=== PATIENT | female | born 1930 | race Two or more races ===

== ENCOUNTER 2017-09-13 02:21 | Inpatient (IN) | payer BC ==
[~2017-09-13] VITALS: Ht 152.4 cm; Wt 72.1 kg
[2017-09-13] MEDS ORDERED: Albuterol ud Inhalation HHN ONE (02:30)
[2017-09-13] MEDS ORDERED: Nitroglycerin Subl 0.4mg tab SL ONE (02:30)
[2017-09-13] MEDS ORDERED: Ipratropium 0.02% Inh Soln 2.5ml UD HHN ONE (02:30)
--- NOTE | 2017-09-13 03:22 | Emergency Room Report ---
History of Present Illness General Chief Complaint: Dyspnea/Respdistress Source: Patient Present Illness HPI Is an 87-year-old female with a she had blood pressure and CAD. She has a pacemaker placed. She presents with chief complaint shows of breath. Been onset for the last couple days it worse at 7 PM tonight. Worse with exertion. Worse with lying flat. No nausea no vomiting. She had to call 911. EMS said she was wheezing and short breath. Blood pressure was very high. They gave her a breathing treatment and put on oxygen. No nausea no vomiting. Never had this problem before. Allergies: Coded Allergies: No Known Allergies (Unverified , 09/13/17) Patient History Past Medical History: see triage record, old chart reviewed, HTN, CAD Past Surgical History: pacemaker Pertinent Family History: none Social History: Denies: smoking Now: No Immunizations: other Reviewed Nursing Documentation: PMH: Agreed, PSxH: Agreed Nursing Documentation-PMH Hx Hypertension: Yes Hx Pacemaker: Yes Review of Systems Eye: Denies: eye pain, blurred vision ENT: Denies: ear pain, nose congestion, throat swelling Respiratory: Reports: shortness of breath, Denies: cough Cardiovascular: Denies: chest pain, palpitations Gastrointestinal: Denies: abdominal pain, diarrhea, nausea, vomiting Musculoskeletal: Denies: back pain, joint pain Skin: Denies: rash Neurological: Denies: headache, numbness Endocrine: Denies: increased thirst, increased urine Hematologic/Lymphatic: Denies: easy bruising All Other Systems: negative except mentioned in HPI Physical Exam Vital Signs Date Time Temp Pulse Resp B/P (MAP) Pulse Ox O2 Delivery O2 Flow Rate FiO2 09/13/17 02:25 97.8 107 28 184/89 97 Non-Rebreather 15.0 97.9 09/13/17 02:47 100 vitals with high blood pressure and hypoxia Sp02 EP Interpretation: abnormal General Appearance: moderate distress Head: normocephalic, atraumatic Eyes: bilateral eye PERRL, bilateral eye EOMI ENT: hearing grossly normal, normal pharynx Neck: full range of motion, supple, no meningismus Respiratory: chest non-tender, respiratory distress, decreased breath sounds, accessory muscle use, rales Cardiovascular #1: regular rate, rhythm, no murmur Gastrointestinal: normal bowel sounds, non tender, no mass, no organomegaly, no bruit, non-distended Musculoskeletal: back normal, normal range of motion, swelling - Trace edema Neurologic: alert, oriented x3 Psychiatric: mood/affect normal Skin: warm/dry Procedures Critical Care Time Critical Care Time Critical care is mandated in this patient who presented with pulmonary edema. Patient require my urgent intervention to attenuate the risks of respiratory collapse which may lead to cardiovascular collapse and . Critical care time is 35 minutes excluding any reportable procedure. Critical care time included evaluation, multiple reevaluation, looking at old charts, interpreting laboratory and diagnostic data, discussing case with patient and family and consultants, and charting. Medical Decision Making Diagnostic Impression: Primary Impression: Pulmonary edema cardiac cause Additional Impression: Hypertensive CHF (congestive heart failure) Qualified Codes: I11.0 - Hypertensive heart disease with heart failure ER Course Patient present with respiratory distress secondary to pulmonary edema and CHF. She diuresed well with Lasix and nitroglycerin and on BiPAP. Blood pressure much improved. Much more comfortable. We'll admit for further workup. No evidence of PE, dissection, pneumonia to name a few. EKG Diagnostic Results Rate: normal Rhythm: NSR ST Segments: no acute changes - paced. ASA given to the pt in ED: Yes Rhythm Strip Diag. Results Rhythm Strip Time: 03:25 EP Interpretation: yes Rate: 78 Rhythm: NSR, no PVC's, no ectopy Chest X-Ray Diagnostic Results Chest X-Ray Diagnostic Results : Chest X-Ray Ordered: Yes # of Views/Limited/Complete: 1 View Indication: Shortness of Breath EP Interpretation: Yes Interpretation: no consolidation, no pneumothorax, other - CM, pacer, chf Impression: Other - chf Electronically Signed by: Glenn Verma MD Last Vital Signs Date Time Temp Pulse Resp B/P (MAP) Pulse Ox O2 Delivery O2 Flow Rate FiO2 09/13/17 03:18 15.0 100 09/13/17 03:11 102 38 Bi-pap 09/13/17 02:56 99 09/13/17 02:52 173/94 09/13/17 02:25 97.8 97.9 Status: improved Disposition: ADMITTED INPATIENT Condition: Serious GLENN VERMA M.D. Sep 13, 2017 03:22
[2017-09-13 03:28] LABS: HEMATOCRIT 40.2 % (37.0-47.0); HEMOGLOBIN 13.2 G/DL (12.0-16.0); LYMPHOCYTES % (AUTO) 23.3 % (20.0-45.0); MEAN CORPUSCULAR VOLUME 87 FL (80-99); MONOCYTES % (AUTO) 5.2 % (1.0-10.0); NEUTROPHILS % (AUTO) 68.5 % (45.0-75.0); PLATELET COUNT 198 K/UL (150-450); RED BLOOD COUNT 4.61 M/UL (4.20-5.40); RED CELL DISTRIBUTION WIDTH 11.8 % (11.6-14.8); WHITE BLOOD COUNT 9.2 K/UL (4.8-10.8)
[2017-09-13 03:39] LABS: ANION GAP 10 mmol/L (5-15); BLOOD UREA NITROGEN 15 mg/dL (7-18); CALCIUM 8.8 MG/DL (8.5-10.1); CARBON DIOXIDE 24 MMOL/L (21-32); CHLORIDE 101 MMOL/L (98-107); CREATININE 0.8 MG/DL (0.55-1.30); POTASSIUM 3.4 MMOL/L (3.5-5.1); SODIUM 135 MMOL/L (136-145)
[2017-09-13 03:53] LABS: ALANINE AMINOTRANSFERASE 27 U/L (12-78); ALBUMIN 3.8 G/DL (3.4-5.0); ALKALINE PHOSPHATASE 96 U/L (46-116); ASPARTATE AMINO TRANSFERASE 18 U/L (15-37); BILIRUBIN,TOTAL 0.5 MG/DL (0.2-1.0); CKMB 1.7 NG/ML (0.0-3.6); CREATINE KINASE 57 U/L (26-308)
[2017-09-13] MEDS ORDERED: Enoxaparin 60mg Inj SUBQ ONE (04:00)
[2017-09-13] MEDS ORDERED: Aspirin Baby 81mg ORAL ONE (04:00)
[2017-09-13 04:38] VITALS: BP 97/52
[2017-09-13 04:55] VITALS: BP 142/82
[2017-09-13 08:00] VITALS: BP 150/78
[2017-09-13] MEDS: Lisinopril 20mg tab ORAL SCH ×2 (09:08→20:20)
[2017-09-13] MEDS: Heparin 5000 units/ml inj SUBQ SCH ×2 (09:11→20:26)
[2017-09-13] MEDS ORDERED: HydrALAZINE 25mg tab ORAL PRN (09:45)
[2017-09-13] MEDS: Metoprolol 25mg tab ORAL SCH ×2 (10:05→20:19)
--- NOTE | 2017-09-13 10:37 | Cardiology Report ---
APPROVED REPORT EKG Measurement Heart [id number] P39 [id number] AV sequential pacing Abnormal ECG
--- NOTE | 2017-09-13 10:43 | Diagnostic Imaging Report ---
Indication: Dyspnea Comparison: None A single view chest radiograph was obtained. Findings: Lung volumes are low. Interstitial prominence and vascular prominence demonstrated. Borderline cardiomegaly present. Pacemaker noted. Atelectasis is likely present at the lung bases. Bones are osteopenic. IMPRESSION: Probable mild interstitial edema.
[2017-09-13 12:31] VITALS: BP 145/71
[2017-09-13] MEDS: Nitroglycerin 2% oint pkt TOPIC SCH ×2 (12:31→17:28)
[2017-09-13 16:00] VITALS: BP 132/75
--- NOTE | 2017-09-13 16:59 | History & Physical ---
History and Physical History & Physicial dict h&p Resp failure pulm edema pulm HTN CHF, acute on chronic systolic and diastolic DM see orders GERARDO LR Sep 13, 2017 16:58
--- NOTE | 2017-09-13 17:17 | Consultation ---
DATE OF CONSULTATION: 09/13/2017 CARDIOLOGY CONSULTATION CONSULTING PHYSICIAN: Rayo Page M.D. REFERRING PHYSICIAN: Gama Fischer M.D. REASON FOR CONSULTATION: Congestive heart failure. HISTORY OF PRESENT ILLNESS: This is an 87-year-old female. She has a prior history of congestive heart failure and hypertension. She notes that several weeks ago, she saw her doctor as an outpatient for leg swelling and was started on a diuretic orally. She improved a bit, but over the past few days has been increasingly weak, fatigued, and short of breath. Last evening, her symptoms progressed significantly and she could not sit down, lie flat, or catch her breath at all prompting visit to the emergency room. The patient has been compliant with medications. She denies any additional salt to her diet. She has not had any recent upper respiratory or other infections. PAST MEDICAL HISTORY: Includes permanent pacemaker implanted two years ago, hypertension, hyperlipidemia, and type 2 diabetes mellitus. MEDICATIONS: Prior to admission, reviewed and reconciled. ALLERGIES: Include phenobarbital. SOCIAL HISTORY: Negative for smoking, alcohol, or substance abuse. REVIEW OF SYSTEMS: A 10-point review of systems performed. All systems negative other than noted above. The patient does not recall when her pacemaker was last interrogated. PHYSICAL EXAMINATION: VITAL SIGNS: Blood pressure in the emergency room 184/89, heart rate 107, and respiratory rate 28. She was afebrile. Presently, blood pressure is 150/80, pulse is 90, and respiratory rate 20. HEENT: Conjunctivae pink. Oropharynx clear. NECK: Supple. Jugular venous pressure to the level of the jaw. LUNGS: With bilateral rales. CARDIAC: Regular rhythm and rate. Normal S1, S2. A 1/6 systolic murmur at apex. ABDOMEN: Soft. EXTREMITIES: A 1+ dependent edema. LABORATORY DATA: White count 9 and hemoglobin 13. Sodium 135, potassium 3.4, bicarbonate 24, BUN 16, and creatinine 0.8. Glucose 343. Natriuretic peptide 2400 and troponin is 0.059. IMPRESSION: 1. Acute on chronic systolic and diastolic congestive heart failure. 2. Permanent pacemaker. 3. Hypertensive heart disease with labile blood pressure. 4. Elevated glucose, possible diabetes mellitus. 5. Acute myocardial ischemia and possible [id number] myocardial infarction. PLAN: 1. Diuresis. 2. Maximize antihypertensive and anti-failure regimen in a stepwise fashion. 3. Observe cardiorenal parameters closely. 4. DVT prophylaxis. 5. Serial troponin levels. 6. Further assessment of coronary flow reserve will be considered once the patient is euvolemic. Rayo Page M.D. DR: TRAN JOB#: [id number] CC:
[2017-09-13] MEDS: metFORMIN 500mg tab ORAL SCH (17:30)
[2017-09-13 20:00] VITALS: BP 155/87
[2017-09-13] MEDS: Atorvastatin 20mg tab ORAL SCH (20:20)
[2017-09-13] MEDS: NovoLOG Insulin Flexpen SUBQ SCH (20:27)
--- NOTE | 2017-09-13 22:46 | History and Physical Report ---
DATE OF ADMISSION: 09/13/2017 CHIEF COMPLAINT: Short of breath. HISTORY OF PRESENT ILLNESS: This 87-year-old woman came to the emergency department because of shortness of breath for one day. She called the paramedics because of these symptoms. She had some wheezing. She has no cough or sputum production. She has no high fever and no chest pain. She was evaluated and found to have pulmonary edema and respiratory distress and was placed on BiPAP and admitted. She was given Lasix and has improved and BiPAP was discontinued at this time. PAST MEDICAL HISTORY: Includes hypertension, coronary disease, diabetes, and pacemaker. She has no history of cancer. MEDICATIONS: To be determined. She is on antihypertensive medication. ALLERGIES: Phenobarbital. REVIEW OF SYSTEMS: She is able to ambulate. She lives independently. She feeds herself. She has no chest pain or palpitations. She has shortness of breath. There is no nausea, vomiting, or diarrhea. She has had ankle edema, but this has improved recently. PHYSICAL EXAMINATION: VITAL SIGNS: Showed tachycardia with some tachypnea and marked hypertension when she arrived. Her blood pressure was 184/89. There was no fever. Presently, her heart rate is down to 68, blood pressure 145/71, saturation 100, and she is on 4 liters of nasal cannula. Her temperature is 99.2 degrees. GENERAL: The patient is overweight. HEENT: The head is normocephalic. NECK: No jugular venous distention. CHEST: Has rales in the left base. CARDIAC: Rhythm is regular. S1 and S2 are normal. There is no murmur or gallop. ABDOMEN: Soft and nontender. Liver and spleen not enlarged. EXTREMITIES: No clubbing, cyanosis, or edema. LABORATORY AND DIAGNOSTIC DATA: Laboratory studies, natriuretic peptide is elevated to 2400. Troponin is mildly elevated at 1.2. Sodium is 135, potassium 3.4, and blood sugar 343. Hemogram is unremarkable. Coagulation parameters are normal. Chest x-ray shows pulmonary edema, cardiomegaly, and pacemaker. IMPRESSION: 1. Acute respiratory failure. 2. Pulmonary edema. 3. Congestive heart failure with acute on chronic systolic and diastolic heart failure. 4. Pulmonary hypertension seen on echocardiogram. 5. Diabetes. 6. Hypertension. PLAN: The patient has been treated with Lasix and improved. She is off BiPAP. We will continue diuresis and antihypertensive medication. Cardiology is seeing the patient. We will follow up troponin to rule out acute HI. Diabetic medications will be given. Gama Fischer M.D. DR: Xochitl JOB#: [id number] CC: Gama Fischer M.D.; Fax#: [phone]
[2017-09-13] MEDS ORDERED: Morphine Sulfate 2mg/ml Inj IM PRN (23:15)
[2017-09-14] VITALS: BP 143/77
[2017-09-14 02:50] LABS: ALANINE AMINOTRANSFERASE 28 U/L (12-78); ALBUMIN 3.7 G/DL (3.4-5.0); ALBUMIN/GLOBULIN RATIO 0.9 (1.0-2.7); ALKALINE PHOSPHATASE 72 U/L (46-116); ANION GAP 7 mmol/L (5-15); ASPARTATE AMINO TRANSFERASE 19 U/L (15-37); BILIRUBIN,TOTAL 0.6 MG/DL (0.2-1.0); BLOOD UREA NITROGEN 19 mg/dL (7-18); CALCIUM 9.3 MG/DL (8.5-10.1); CARBON DIOXIDE 31 MMOL/L (21-32); CHLORIDE 100 MMOL/L (98-107); CHOLESTEROL 110 MG/DL (< 200); CREATININE 0.8 MG/DL (0.55-1.30); HDL CHOLESTEROL 36 MG/DL (40-60); POTASSIUM 3.7 MMOL/L (3.5-5.1); SODIUM 138 MMOL/L (136-145); TRIGLYCERIDES 136 MG/DL (30-150)
[2017-09-14 04:00] VITALS: BP 158/78
[2017-09-14 05:26] LABS: BILIRUBIN, URINE NEGATIVE (NEGATIVE); COLOR,URINE PALE YELLOW; GLUCOSE, URINE (UA) NEGATIVE (NEGATIVE); KETONES,URINE NEGATIVE (NEGATIVE); LEUKOCYTE ESTERASE ,URINE 3+ (NEGATIVE); NITRITE,URINE NEGATIVE (NEGATIVE); PH,URINE 5 (4.5-8.0); PROTEIN,URINE 2+ (NEGATIVE); UROBILINOGEN,URINE NORMAL MG/DL (0.0-1.0)
[2017-09-14] MEDS: Nitroglycerin 2% oint pkt TOPIC SCH ×3 (05:26→17:37)
[2017-09-14] MEDS: NovoLOG Insulin Flexpen SUBQ SCH ×4 (05:26→20:34)
[2017-09-14 05:37] LABS: APPEARANCE,URINE SLIGHTLY CLOUDY
[2017-09-14] MEDS ORDERED: Morphine Sulfate 4mg/ml Inj IVP PRN (05:45)
[2017-09-14] MEDS ORDERED: Morphine Sulfate 2mg/ml Inj IVP PRN (06:00)
[2017-09-14 08:00] VITALS: BP 136/70
[2017-09-14] MEDS ORDERED: LISINOPRIL1 GM MC (08:13)
--- NOTE | 2017-09-14 08:19 | Pulmonology Progress Note ---
Assessment/Plan Assessment/Plan 1. Acute respiratory failure. 2. Pulmonary edema. 3. Congestive heart failure with acute on chronic systolic and diastolic heart failure. 4. Pulmonary hypertension seen on echocardiogram. 5. Diabetes. 6. Hypertension. PLAN: The patient has been treated with Lasix and improved. She is off BiPAP. I will continue diuresis and provide antihypertensive medication. Cardiology is seeing the patient. saturating 96% on 2L/min o2 Diabetes care Subjective Interval Events: Looking better; no overnight complaints Constitutional: Reports: no symptoms HEENT: Repors: no symptoms Respiratory: Reports: shortness of breath Cardiovascular: Reports: no symptoms Gastrointestinal/Abdominal: Reports: no symptoms Allergies: Coded Allergies: PHENOBARBITAL (Verified Allergy, Unknown, 09/13/17) Objective Last 24 Hour Vital Signs Date Time Temp Pulse Resp B/P (MAP) Pulse Ox O2 Delivery O2 Flow Rate FiO2 09/14/17 08:11 Nasal Cannula 2.0 28 09/14/17 08:10 88 20 Nasal Cannula 2.0 28 09/14/17 08:10 98 Nasal Cannula 2.0 28 09/14/17 05:26 158/78 09/14/17 04:00 3.0 09/14/17 04:00 98.7 71 20 158/78 98 Nasal Cannula 3.0 09/14/17 04:00 77 09/14/17 00:00 96.3 72 20 143/77 95 Nasal Cannula 4.0 09/14/17 00:00 71 09/13/17 20:20 155/87 09/13/17 20:19 83 155/87 09/13/17 20:18 Nasal Cannula 2.0 28 09/13/17 20:18 85 20 Nasal Cannula 2.0 28 09/13/17 20:18 98 Nasal Cannula 2.0 28 09/13/17 20:00 84 09/13/17 20:00 98.5 83 20 155/87 100 Nasal Cannula 4.0 09/13/17 20:00 2.0 09/13/17 17:28 132/75 09/13/17 16:00 97.8 64 19 132/75 100 Nasal Cannula 4.0 09/13/17 15:58 68 09/13/17 15:58 4.0 09/13/17 12:31 99.2 68 18 145/71 98 Nasal Cannula 4.0 09/13/17 12:31 145/71 09/13/17 12:00 60 09/13/17 12:00 4.0 09/13/17 10:08 83 18 98 09/13/17 10:05 60 150/78 09/13/17 09:08 150/78 Intake and Output 09/13/17 09/14/17 19:00 07:00 Intake Total 300 ml 200 ml Output Total 900 ml 1550 ml Balance -600 ml -1350 ml Intake Oral 300 ml 200 ml Output Urine Total 900 ml 1550 ml General Appearance: no acute distress HEENT: normocephalic Respiratory/Chest: chest wall non-tender, decreased breath sounds Cardiovascular: normal peripheral pulses, normal rate Abdomen: normal bowel sounds, soft, non tender Laboratory Tests 09/13/17 10:20: Troponin I 1.271H 09/13/17 17:50: Troponin I 1.361H 09/14/17 02:15: Troponin I 1.146H, Sodium Level 138, Potassium Level 3.7, Chloride Level 100, Carbon Dioxide Level 31, Anion Gap 7, Blood Urea Nitrogen 19H, Creatinine 0.8, Estimat Glomerular Filtration Rate , Glucose Level 220#H, Hemoglobin A1c 9.2H, Calcium Level 9.3, Total Bilirubin 0.6, Aspartate Amino Transf (AST/SGOT) 19, Alanine Aminotransferase (ALT/SGPT) 28, Alkaline Phosphatase 72, Pro-B-Type Natriuretic Peptide 4039H, Total Protein 7.6, Albumin 3.7, Globulin 3.9, Albumin /Globulin Ratio 0.9L, Triglycerides Level 136, Cholesterol Level 110, LDL Cholesterol 59, HDL Cholesterol 36L, Cholesterol/HDL Ratio 3.1L 09/14/17 03:00: Urine Color Pale yellow, Urine Appearance Slightly cloudy, Urine pH 5, Urine Specific [place] 1.020, Urine Protein 2+H, Urine Glucose (UA) Negative, Urine Ketones Negative, Urine Occult Blood 5+H, Urine Nitrite Negative, Urine Bilirubin Negative, Urine Urobilinogen Normal, Urine Leukocyte Esterase 3+H, Urine RBC 40-60H, Urine WBC 30-40H, Urine Squamous Epithelial Cells Few, Urine Bacteria ManyH Current Medications Medications (Trade) Dose Ordered Sig/Sin Route PRN Reason Start Time Stop Time Status Last Admin Dose Admin Atorvastatin Calcium (Lipitor) 40 mg BEDTIME ORAL 09/13/17 21:00 10/13/17 20:59 09/13/17 20:20 Clopidogrel Bisulfate (Plavix) 75 mg DAILY ORAL 09/14/17 09:00 10/14/17 08:59 Dextrose (Dextrose 50%) STAT PRN IV Hypoglycemia 09/13/17 17:15 10/13/17 17:14 Furosemide (Lasix) 40 mg EVERY 12 HOURS IV 09/13/17 21:00 10/13/17 13:59 09/13/17 20:19 Heparin Sodium (Porcine) (Heparin 5000 units/ml) 5,000 units EVERY 12 HOURS SUBQ 09/13/17 09:00 10/13/17 08:59 09/13/17 20:26 Hydralazine HCl (Apresoline) 25 mg Q6H PRN ORAL SBP above 150 09/13/17 09:45 10/13/17 09:44 Insulin Aspart (NovoLOG) BEFORE MEALS AND HS SUBQ 09/13/17 21:00 10/13/17 20:59 09/14/17 05:26 Lisinopril (Prinivil) 20 mg Q12HR ORAL 09/13/17 09:00 10/13/17 08:59 09/13/17 20:20 Metformin HCl (Glucophage) 500 mg BID ORAL 09/13/17 18:00 10/13/17 17:59 09/13/17 17:30 Metoprolol Tartrate (Lopressor) 25 mg Q12HR ORAL 09/13/17 10:00 10/13/17 09:59 09/13/17 20:19 Morphine Sulfate (Morphine Sulfate) 2 mg Q3HR PRN IVP For Pain 09/14/17 06:00 09/21/17 05:59 Nitroglycerin (Nitro-Bid) 1 inch TID@0600,1200,1800 TOPIC 09/13/17 12:00 10/13/17 11:59 09/14/17 05:26 Ondansetron HCl (Zofran) 4 mg EVERY 4 HOURS PRN IVP Nausea & Vomiting 09/13/17 23:15 10/13/17 23:14 09/13/17 23:32 Reuben Patiño MD Sep 14, 2017 08:19
[2017-09-14] MEDS ORDERED: GLIPIZIDE-METF1 EACH PO (08:23)
[2017-09-14] MEDS ORDERED: METFORMIN HCL500 M1 ORAL (08:23)
[2017-09-14] MEDS ORDERED: CARVEDILOL6.25 MG ORAL (08:23)
[2017-09-14] MEDS ORDERED: PANTOPRAZOLE SO40 MG ORAL (08:23)
[2017-09-14] MEDS ORDERED: ASPIR 8181 MG ORAL (08:23)
[2017-09-14] MEDS: Heparin 5000 units/ml inj SUBQ SCH ×2 (09:26→20:33)
[2017-09-14] MEDS: metFORMIN 500mg tab ORAL SCH ×2 (09:27→17:36)
[2017-09-14] MEDS: Metoprolol 25mg tab ORAL SCH ×2 (09:28→20:32)
[2017-09-14] MEDS: Lisinopril 20mg tab ORAL SCH ×2 (09:28→20:31)
[2017-09-14 12:00] VITALS: BP 120/62
--- NOTE | 2017-09-14 14:10 | Wound Care Consultation ---
Wound Assessment Wound Assessment : Wound Number: 1 Wound Present on Admission: Yes New Wound: No Status Change of Wound: No Wound Location Body Site: perianal Wound Type: erosion Dagmar Test: Does not Dagmar Wound Thickness: Full Thickness Percent of Wound [place]/Red: 100 Wound Drainage Description: Serosanguineous Wound Drainage Amount: Scant Wound Drainage Odor: None/Absent Tissue Surrounding Wound: Erythemic Wound General Appearance: Reddened Wound Comment #1 Perianal chemical burn with full thickness erosion #2 Perineal chemical burn Recommendation -Local wound care per protocol -Keep clean and dry -Offload both heels -Heel protector on both heels -Optimize nutrition -Low air loss mattress -Turn and reposition -Assess and f/u accordingly for any changes ANNE EDUARDO RN Sep 14, 2017 14:10
[2017-09-14 16:00] VITALS: BP 127/65
[2017-09-14 20:00] VITALS: BP 149/56
[2017-09-14] MEDS: Atorvastatin 20mg tab ORAL SCH (20:32)
[2017-09-15] VITALS: BP 117/60
[2017-09-15 04:00] VITALS: BP 141/70
[2017-09-15 04:00] LABS: BASOPHILS % (AUTO) 0.8 % (0.0-2.0); EOSINOPHILS % (AUTO) 1.9 % (0.0-3.0); HEMOGLOBIN 12.3 G/DL (12.0-16.0); LYMPHOCYTES % (AUTO) 18.9 % (20.0-45.0); MEAN CORPUSCULAR VOLUME 87 FL (80-99); NEUTROPHILS % (AUTO) 71.4 % (45.0-75.0); PLATELET COUNT 177 K/UL (150-450); RED BLOOD COUNT 4.13 M/UL (4.20-5.40); RED CELL DISTRIBUTION WIDTH 11.9 % (11.6-14.8); WHITE BLOOD COUNT 9.5 K/UL (4.8-10.8)
[2017-09-15 04:21] LABS: ANION GAP 8 mmol/L (5-15); BLOOD UREA NITROGEN 24 mg/dL (7-18); CALCIUM 9.1 MG/DL (8.5-10.1); CARBON DIOXIDE 32 MMOL/L (21-32); CHLORIDE 98 MMOL/L (98-107); CREATININE 0.8 MG/DL (0.55-1.30); POTASSIUM 3.5 MMOL/L (3.5-5.1); SODIUM 138 MMOL/L (136-145)
[2017-09-15] MEDS: Nitroglycerin 2% oint pkt TOPIC SCH ×3 (05:46→17:35)
[2017-09-15] MEDS: NovoLOG Insulin Flexpen SUBQ SCH ×4 (05:46→20:52)
[2017-09-15 08:00] VITALS: BP 146/82
--- NOTE | 2017-09-15 09:42 | Pulmonology Progress Note ---
Assessment/Plan Assessment/Plan Assessment/Plan 1. Acute respiratory failure. 2. Pulmonary edema. 3. Congestive heart failure with acute on chronic systolic and diastolic heart failure. 4. Pulmonary hypertension seen on echocardiogram. 5. Diabetes. 6. Hypertension. 7 UTI PLAN: Diuresis She is off BiPAP whs and prn distress antihypertensive medication. Cardiology is seeing the patient. saturating 96% on 2L/min o2 Diabetes care FU Urine culture start abx Subjective Constitutional: Reports: no symptoms HEENT: Repors: no symptoms Respiratory: Reports: productive cough Cardiovascular: Reports: no symptoms Gastrointestinal/Abdominal: Reports: nausea Genitourinary: Reports: no symptoms Neurologic: Reports: no symptoms Psychiatric: Reports: no symptoms Allergies: Coded Allergies: PHENOBARBITAL (Verified Allergy, Unknown, 09/13/17) Subjective better this am bipap at night oob to chair no cp nv or bleeding tolerating po positive bm and uop Objective Last 24 Hour Vital Signs Date Time Temp Pulse Resp B/P (MAP) Pulse Ox O2 Delivery O2 Flow Rate FiO2 09/15/17 08:00 97.7 83 18 146/82 97 Nasal Cannula 3.0 09/15/17 07:44 Nasal Cannula 3.0 32 09/15/17 07:44 98 Nasal Cannula 3.0 32 09/15/17 07:44 75 18 Nasal Cannula 3.0 32 09/15/17 05:46 141/70 09/15/17 04:00 73 09/15/17 04:00 98.2 70 24 141/70 96 Nasal Cannula 3.0 09/15/17 00:00 99.1 70 24 117/60 98 Nasal Cannula 3.0 09/15/17 00:00 68 09/14/17 20:32 82 149/56 18 20:31 149/56 09/14/17 20:00 82 09/14/17 20:00 98.2 82 16 149/56 96 Nasal Cannula 3.0 09/14/17 19:57 Nasal Cannula 3.0 32 09/14/17 19:56 96 Nasal Cannula 3.0 32 09/14/17 19:53 73 18 Nasal Cannula 3.0 32 09/14/17 17:37 120/62 09/14/17 16:19 3.0 09/14/17 16:00 98.9 72 18 127/65 96 Nasal Cannula 3.0 09/14/17 16:00 71 09/14/17 12:49 120/62 09/14/17 12:00 60 09/14/17 12:00 98.2 62 16 120/62 97 Nasal Cannula 3.0 Intake and Output 09/14/17 09/15/17 19:00 07:00 Intake Total 680 ml 100 ml Output Total 750 ml 1400 ml Balance -70 ml -1300 ml Intake Oral 680 ml Other 100 ml Output Urine Total 750 ml 1400 ml General Appearance: WD/WN HEENT: PERRL Respiratory/Chest: crackles/rales, rhonchi Cardiovascular: normal rate, regular rhythm Abdomen: soft, non tender, non distended Extremities: no cyanosis, no clubbing Neurologic/Psychiatric: abnormal gait, oriented x 3 Lymphatic: no neck adenopathy Laboratory Tests 09/15/17 03:15: White Blood Count 9.5, Red Blood Count 4.13L, Hemoglobin 12.3, Hematocrit 36.0L , Mean Corpuscular Volume 87, Mean Corpuscular Hemoglobin 29.9, Mean Corpuscular Hemoglobin Concent 34.3, Red Cell Distribution Width 11.9, Platelet Count 177, Mean Platelet Volume 9.1, Neutrophils (%) (Auto) 71.4, Lymphocytes (% ) (Auto) 18.9L, Monocytes (%) (Auto) 7.0, Eosinophils (%) (Auto) 1.9, Basophils (%) (Auto) 0.8, Sodium Level 138, Potassium Level 3.5, Chloride Level 98, Carbon Dioxide Level 32, Anion Gap 8, Blood Urea Nitrogen 24H, Creatinine 0.8, Estimat Glomerular Filtration Rate , Glucose Level 155H, Calcium Level 9.1, Pro- B-Type Natriuretic Peptide 1777H Current Medications Medications (Trade) Dose Ordered Sig/Sin Route PRN Reason Start Time Stop Time Status Last Admin Dose Admin Atorvastatin Calcium (Lipitor) 40 mg BEDTIME ORAL 09/13/17 21:00 10/13/17 20:59 09/14/17 20:32 Clopidogrel Bisulfate (Plavix) 75 mg DAILY ORAL 09/14/17 09:00 10/14/17 08:59 09/14/17 09:28 Dextrose (Dextrose 50%) STAT PRN IV Hypoglycemia 09/13/17 17:15 10/13/17 17:14 Furosemide (Lasix) 40 mg EVERY 12 HOURS IV 09/13/17 21:00 10/13/17 13:59 09/14/17 20:32 Heparin Sodium (Porcine) (Heparin 5000 units/ml) 5,000 units EVERY 12 HOURS SUBQ 09/13/17 09:00 10/13/17 08:59 09/14/17 20:33 Hydralazine HCl (Apresoline) 25 mg Q6H PRN ORAL SBP above 150 09/13/17 09:45 10/13/17 09:44 Insulin Aspart (NovoLOG) BEFORE MEALS AND HS SUBQ 09/13/17 21:00 10/13/17 20:59 09/15/17 05:46 Lisinopril (Prinivil) 20 mg Q12HR ORAL 09/13/17 09:00 10/13/17 08:59 09/14/17 20:31 Metformin HCl (Glucophage) 500 mg BID ORAL 09/13/17 18:00 10/13/17 17:59 09/14/17 17:36 Metoprolol Tartrate (Lopressor) 25 mg Q12HR ORAL 09/13/17 10:00 10/13/17 09:59 09/14/17 20:32 Nitroglycerin (Nitro-Bid) 1 inch TID@0600,1200,1800 TOPIC 09/13/17 12:00 10/13/17 11:59 09/15/17 05:46 Ondansetron HCl (Zofran) 4 mg EVERY 4 HOURS PRN IVP Nausea & Vomiting 09/13/17 23:15 10/13/17 23:14 09/13/17 23:32 SAMANTHA CAT DO Sep 15, 2017 09:42
[2017-09-15] MEDS: metFORMIN 500mg tab ORAL SCH ×2 (09:49→17:35)
[2017-09-15] MEDS: Lisinopril 20mg tab ORAL SCH ×2 (09:49→20:49)
[2017-09-15] MEDS: Heparin 5000 units/ml inj SUBQ SCH ×2 (09:50→20:44)
[2017-09-15] MEDS: Metoprolol 25mg tab ORAL SCH ×2 (09:50→20:49)
[2017-09-15 12:00] VITALS: BP 117/61
[2017-09-15] MEDS ORDERED: cefTRIAXone 1gm/D5W 55ml IVPB SCH ×2 (12:00)
[2017-09-15] MEDS: cefTRIAXone 1 GM in NS 55 ML IVPB SCH (14:08)
[2017-09-15 16:00] VITALS: BP 108/59
[2017-09-15 20:00] VITALS: BP 141/66
[2017-09-15] MEDS: Atorvastatin 20mg tab ORAL SCH (20:49)
[2017-09-16] VITALS: BP 137/62
[2017-09-16 04:00] VITALS: BP 120/61
[2017-09-16 04:58] LABS: BASOPHILS % (AUTO) 0.5 % (0.0-2.0); EOSINOPHILS % (AUTO) 1.8 % (0.0-3.0); HEMATOCRIT 36.7 % (37.0-47.0); HEMOGLOBIN 12.5 G/DL (12.0-16.0); MEAN CORPUSCULAR VOLUME 86 FL (80-99); MONOCYTES % (AUTO) 6.9 % (1.0-10.0); NEUTROPHILS % (AUTO) 74.8 % (45.0-75.0); PLATELET COUNT 190 K/UL (150-450); RED BLOOD COUNT 4.25 M/UL (4.20-5.40); RED CELL DISTRIBUTION WIDTH 11.5 % (11.6-14.8); WHITE BLOOD COUNT 8.2 K/UL (4.8-10.8)
[2017-09-16 05:27] LABS: ANION GAP 9 mmol/L (5-15); BLOOD UREA NITROGEN 31 mg/dL (7-18); CALCIUM 8.8 MG/DL (8.5-10.1); CARBON DIOXIDE 29 MMOL/L (21-32); CHLORIDE 102 MMOL/L (98-107); CREATININE 0.9 MG/DL (0.55-1.30); POTASSIUM 2.9 MMOL/L (3.5-5.1); SODIUM 140 MMOL/L (136-145)
[2017-09-16] MEDS: Nitroglycerin 2% oint pkt TOPIC SCH ×3 (05:47→18:12)
[2017-09-16] MEDS: NovoLOG Insulin Flexpen SUBQ SCH ×4 (05:48→20:55)
[2017-09-16 08:00] VITALS: BP 141/57
[2017-09-16] MEDS: metFORMIN 500mg tab ORAL SCH ×2 (08:44→18:12)
[2017-09-16] MEDS: Metoprolol 25mg tab ORAL SCH (08:45)
[2017-09-16] MEDS: Lisinopril 20mg tab ORAL SCH ×2 (08:45→20:52)
[2017-09-16] MEDS: Heparin 5000 units/ml inj SUBQ SCH ×2 (08:48→20:54)
--- NOTE | 2017-09-16 09:12 | Cardiology Progress Note ---
Assessment/Plan Assessment/Plan 1. Acute diastolic and systolic CHF, continue lasix, add aldactone, start carvedilol. 2. NSTEMI vs trop leak due to myocarditis, ASA and plavix, high intensity statins. 3. Dual chamber pacemkaer, functioning well, V-paced. Subjective Subjective Sinus rhythm at 81, V-paced. Objective Last 24 Hour Vital Signs Date Time Temp Pulse Resp B/P (MAP) Pulse Ox O2 Delivery O2 Flow Rate FiO2 09/16/17 08:45 81 141/57 09/16/17 08:45 141/57 09/16/17 08:00 98.4 81 20 141/57 97 Nasal Cannula 3.0 09/16/17 07:47 82 09/16/17 06:38 Nasal Cannula 3.0 32 09/16/17 06:37 69 18 Nasal Cannula 3.0 32 09/16/17 06:37 93 Nasal Cannula 3.0 32 09/16/17 05:47 137/62 09/16/17 04:00 97.9 79 20 120/61 96 Nasal Cannula 3.0 09/16/17 04:00 75 09/16/17 00:00 64 09/16/17 00:00 97.3 74 20 137/62 96 Nasal Cannula 3.0 09/15/17 20:49 72 141/66 09/15/17 20:49 141/66 09/15/17 20:05 Nasal Cannula 3.0 32 09/15/17 20:05 95 Nasal Cannula 3.0 32 09/15/17 20:05 72 17 Nasal Cannula 3.0 32 09/15/17 20:00 74 09/15/17 20:00 98.3 70 20 141/66 95 Nasal Cannula 3.0 09/15/17 17:35 108/59 09/15/17 16:00 98.3 76 17 108/59 94 Nasal Cannula 3.0 09/15/17 16:00 72 09/15/17 12:14 117/61 09/15/17 12:00 98.1 64 18 117/61 97 Nasal Cannula 3.0 09/15/17 11:48 63 09/15/17 09:50 83 146/82 09/15/17 09:49 146/82 Intake and Output 09/15/17 09/16/17 19:00 07:00 Intake Total 295 ml 150 ml Output Total 600 ml 1300 ml Balance -305 ml -1150 ml Intake Oral 240 ml 150 ml IV Total 55 ml Output Urine Total 600 ml 1300 ml # Bowel Movements 2 Laboratory Tests Test 09/16/17 04:20 White Blood Count 8.2 K/UL (4.8-10.8) Red Blood Count 4.25 M/UL (4.20-5.40) Hemoglobin 12.5 G/DL (12.0-16.0) Hematocrit 36.7 % (37.0-47.0) L Mean Corpuscular Volume 86 FL (80-99) Mean Corpuscular Hemoglobin 29.4 PG (27.0-31.0) Mean Corpuscular Hemoglobin Concent 34.0 G/DL (32.0-36.0) Red Cell Distribution Width 11.5 % (11.6-14.8) L Platelet Count 190 K/UL (150-450) Mean Platelet Volume 9.0 FL (6.5-10.1) Neutrophils (%) (Auto) 74.8 % (45.0-75.0) Lymphocytes (%) (Auto) 16.0 % (20.0-45.0) L Monocytes (%) (Auto) 6.9 % (1.0-10.0) Eosinophils (%) (Auto) 1.8 % (0.0-3.0) Basophils (%) (Auto) 0.5 % (0.0-2.0) Sodium Level 140 MMOL/L (136-145) Potassium Level 2.9 MMOL/L (3.5-5.1) L Chloride Level 102 MMOL/L (98-107) Carbon Dioxide Level 29 MMOL/L (21-32) Anion Gap 9 mmol/L (5-15) Blood Urea Nitrogen 31 mg/dL (7-18) H Creatinine 0.9 MG/DL (0.55-1.30) Estimat Glomerular Filtration Rate mL/min (>60) Glucose Level 230 MG/DL (74-106) H Calcium Level 8.8 MG/DL (8.5-10.1) Magnesium Level 1.5 MG/DL (1.8-2.4) L Troponin I 0.216 ng/mL (0.000-0.056) Pro-B-Type Natriuretic Peptide 872 pg/mL (0-125) H Microbiology Date/Time Source Procedure Growth Status 09/14/17 03:00 Urine,Clean Catch Urine Culture - Preliminary Gram Negative Faustino Resulted Objective HEENT: Conjunctivae pink. Oropharynx clear. NECK: Supple. Jugular venous pressure to the level of the jaw. LUNGS: With bilateral rales. CARDIAC: Regular rhythm and rate. Normal S1, S2. + S3, A 2/6 systolic murmur at apex. ABDOMEN: Soft. EXTREMITIES: A 1+ dependent edema. FRANCOIS ZAMORA Sep 16, 2017 09:12
--- NOTE | 2017-09-16 10:16 | Progress Note ---
DATE & Time of the patient Encounter: 09/15/2017 7:35 p.m. COMPREHENSIVE CARDIOLOGY PROGRESS NOTE Coverage for Dr. Page Summary: The patient is a very unfortunate 87-year-old female, who presented to the hospital with progressive worsening of shortness of breath for about 2 days, worse with exertion, associated 3-4 pillow orthopnea. The patient has history of coronary artery disease, history of dual-chamber pacemaker implantation. Initial evaluation in the emergency department revealed accelerated hypertension with blood pressure 184/80 mmHg, heart rate of 107. A 12-lead electrocardiogram in the emergency department revealed sinus tachycardia, rate of 102, with ventricular-paced rhythm. At this time, she was admitted under Dr. Fischer and Dr. Page, primary photo editor had consulted on the patient. Initial evaluation revealed [id number] myocardial infarction with troponin level 0.05, now which boubacar to 1.2 and 1.3 and trended down to 1.1. Chest x-ray was significant for pulmonary edema consistent with congestive heart failure. A 2D echocardiography revealed acute systolic and diastolic congestive heart failure with left ventricular ejection fraction estimated at 30% to 35%. There is presence of a moderate mitral regurgitation and mild pulmonary hypertension with RVSP of 40 mmHg. The patient is currently seen in Cardiology followup on behalf of Dr. Rayo Page for whom I am covering. Subjective: The patient appears to be less dyspneic. She complains of loose bowel movements. OBJECTIVE: VITAL SIGNS: Blood pressure 117/61, heart rate of 64, temperature 98.1 degrees Fahrenheit, and O2 saturation 97%. Rhythm strip shows sinus rhythm with ventricular-paced rhythm. HEENT: Atraumatic and normocephalic. Anicteric. Pupils are equal, round, and reactive to light and accommodation. Extraocular muscles intact. NECK: JVP less than 5 cm. No carotid bruits. Carotid upstrokes 2+ bilaterally. CARDIOVASCULAR SYSTEM: Normal S1, S2. Presence of 2/6 holosystolic murmur at the left sternal border and apex. PMI is at fourth intercostal space at the midclavicular line. LUNGS: Diminished breath sounds in both bases with some crackles. ABDOMEN: Soft, nontender, nondistended. No hepatosplenomegaly. Positive bowel sounds. EXTREMITIES: No evidence of edema, clubbing, or cyanosis. LABORATORY FINDINGS: Sodium 138, potassium 3.5, chloride 98, bicarbonate 32, BUN of 24, creatinine 0.8, glucose 155, and calcium is 9.1. ProBNP was 1777. INR was 1.0. WBC 9.5, hemoglobin 12.3, hematocrit 36.0, and platelet count 177,000. ASSESSMENT AND PLAN: 1. Acute systolic and diastolic congestive heart failure. Her BNP, chest x-ray, and 2D echocardiography findings. The patient is currently on furosemide 40 mg twice daily. We will continue to monitor the patient's intake and output and creatinine level. The patient recalls to be also on angiotensin-converting enzyme inhibitor for which she takes lisinopril 20 mg daily. We will add Aldactone 25 mg daily based on guides on recommendation. The patient will also be started on carvedilol. 2. [id number] myocardial infarction versus elevated troponin due to myocarditis. The patient will require to have cardiac catheterization if it was not yet done. I also spoke with the patient and the patient's family and also Dr. Fischer, primary care physician in this regard. In the meantime, we will continue the patient on clopidogrel and aspirin. 3. Dyslipidemia. Continue atorvastatin 40. 4. Diabetes mellitus. 5. History of hypertension. Quinten Jaramillo M.D. DR: Donald JOB#: [id number] CC: JHONY
[2017-09-16 12:00] VITALS: BP 131/69
[2017-09-16] MEDS: cefTRIAXone 1 GM in NS 55 ML IVPB SCH (12:44)
[2017-09-16] MEDS: Spironolactone 25mg tab ORAL SCH (13:30)
[2017-09-16] MEDS: Aspirin Baby 81mg ORAL SCH (14:43)
[2017-09-16 16:00] VITALS: BP 113/59
[2017-09-16 20:00] VITALS: BP 144/74
--- NOTE | 2017-09-16 20:02 | Pulmonology Progress Note ---
Assessment/Plan Assessment/Plan Assessment/Plan 1. Acute respiratory failure. 2. Pulmonary edema. 3. Congestive heart failure with acute on chronic systolic and diastolic heart failure. 4. Pulmonary hypertension seen on echocardiogram. 5. Diabetes. 6. Hypertension. 7 UTI e colie 8. Diarrhea ? Cidiff PLAN: Diuresis lytes replaced today continue supple She is off BiPAP whs and prn distress antihypertensive medication. Cardiology is seeing the patient. saturating 96% on 2L/min o2 Diabetes care abx send stool c diff start flagyl Subjective Constitutional: Reports: no symptoms HEENT: Repors: no symptoms Respiratory: Reports: no symptoms Gastrointestinal/Abdominal: Reports: diarrhea Genitourinary: Reports: no symptoms Neurologic: Reports: no symptoms Psychiatric: Reports: no symptoms Allergies: Coded Allergies: PHENOBARBITAL (Verified Allergy, Unknown, 09/13/17) Subjective better this am bipap at night oob to chair no cp nv or bleeding tolerating po copious diarrhea no fever Objective Last 24 Hour Vital Signs Date Time Temp Pulse Resp B/P (MAP) Pulse Ox O2 Delivery O2 Flow Rate FiO2 09/16/17 19:16 Nasal Cannula 3.0 32 09/16/17 19:16 97 Nasal Cannula 3.0 32 09/16/17 19:16 75 20 Nasal Cannula 3.0 32 09/16/17 18:12 113/59 09/16/17 16:00 97.6 72 20 113/59 97 Nasal Cannula 3.0 09/16/17 16:00 72 09/16/17 12:21 131/69 09/16/17 12:00 98.9 65 20 131/69 97 Nasal Cannula 3.0 09/16/17 11:54 66 09/16/17 08:45 81 141/57 18 08:45 141/57 09/16/17 08:00 98.4 81 20 141/57 97 Nasal Cannula 3.0 09/16/17 07:47 82 09/16/17 06:38 Nasal Cannula 3.0 32 09/16/17 06:37 69 18 Nasal Cannula 3.0 32 09/16/17 06:37 93 Nasal Cannula 3.0 32 09/16/17 05:47 137/62 09/16/17 04:00 97.9 79 20 120/61 96 Nasal Cannula 3.0 09/16/17 04:00 75 09/16/17 00:00 64 09/16/17 00:00 97.3 74 20 137/62 96 Nasal Cannula 3.0 09/15/17 20:49 72 141/66 09/15/17 20:49 141/66 09/15/17 20:05 Nasal Cannula 3.0 32 09/15/17 20:05 95 Nasal Cannula 3.0 32 09/15/17 20:05 72 17 Nasal Cannula 3.0 32 09/15/17 20:00 74 09/15/17 20:00 98.3 70 20 141/66 95 Nasal Cannula 3.0 Intake and Output 09/15/17 09/16/17 19:00 07:00 Intake Total 295 ml 150 ml Output Total 600 ml 1300 ml Balance -305 ml -1150 ml Intake Oral 240 ml 150 ml IV Total 55 ml Output Urine Total 600 ml 1300 ml # Bowel Movements 2 General Appearance: WD/WN HEENT: atraumatic, anicteric Respiratory/Chest: crackles/rales Cardiovascular: normal rate, regular rhythm, murmur systolic Abdomen: soft, non tender, no organomegaly, tender Skin: no rash, no lesions Neurologic/Psychiatric: abnormal gait, alert Lymphatic: no neck adenopathy Microbiology Date/Time Source Procedure Growth Status 09/14/17 03:00 Urine,Clean Catch Urine Culture - Final Escherichia Coli Complete Laboratory Tests 09/16/17 04:20: White Blood Count 8.2, Red Blood Count 4.25, Hemoglobin 12.5, Hematocrit 36.7L, Mean Corpuscular Volume 86, Mean Corpuscular Hemoglobin 29.4, Mean Corpuscular Hemoglobin Concent 34.0, Red Cell Distribution Width 11.5L, Platelet Count 190, Mean Platelet Volume 9.0, Neutrophils (%) (Auto) 74.8, Lymphocytes (%) (Auto) 16.0L, Monocytes (%) (Auto) 6.9, Eosinophils (%) (Auto) 1.8, Basophils (%) (Auto ) 0.5, Sodium Level 140, Potassium Level 2.9L, Chloride Level 102, Carbon Dioxide Level 29, Anion Gap 9, Blood Urea Nitrogen 31H, Creatinine 0.9, Estimat Glomerular Filtration Rate , Glucose Level 230H, Calcium Level 8.8, Magnesium Level 1.5L, Troponin I 0.216H, Pro-B-Type Natriuretic Peptide 872H Current Medications Medications (Trade) Dose Ordered Sig/Sin Route PRN Reason Start Time Stop Time Status Last Admin Dose Admin Aspirin (ASA) 81 mg DAILY ORAL 09/16/17 13:30 10/16/17 13:29 09/16/17 14:43 Atorvastatin Calcium (Lipitor) 40 mg BEDTIME ORAL 09/13/17 21:00 10/13/17 20:59 09/15/17 20:49 Carvedilol (Coreg) 6.25 mg EVERY 12 HOURS ORAL 09/16/17 21:00 10/16/17 20:59 Ceftriaxone Sodium 1 gm/ Sodium Chloride 55 ml @ 110 mls/hr Q24H IVPB 09/15/17 13:00 09/22/17 23:59 09/16/17 12:44 Clopidogrel Bisulfate (Plavix) 75 mg DAILY ORAL 09/14/17 09:00 10/14/17 08:59 09/16/17 08:45 Dextrose (Dextrose 50%) STAT PRN IV Hypoglycemia 09/13/17 17:15 10/13/17 17:14 Furosemide (Lasix) 40 mg EVERY 12 HOURS IV 09/13/17 21:00 10/13/17 13:59 09/16/17 08:45 Heparin Sodium (Porcine) (Heparin 5000 units/ml) 5,000 units EVERY 12 HOURS SUBQ 09/13/17 09:00 10/13/17 08:59 09/16/17 08:48 Hydralazine HCl (Apresoline) 25 mg Q6H PRN ORAL SBP above 150 09/13/17 09:45 10/13/17 09:44 Insulin Aspart (NovoLOG) BEFORE MEALS AND HS SUBQ 09/13/17 21:00 10/13/17 20:59 09/16/17 17:06 Lisinopril (Prinivil) 20 mg Q12HR ORAL 09/13/17 09:00 10/13/17 08:59 09/16/17 08:45 Metformin HCl (Glucophage) 500 mg BID ORAL 09/13/17 18:00 10/13/17 17:59 09/16/17 18:12 Nitroglycerin (Nitro-Bid) 1 inch TID@0600,1200,1800 TOPIC 09/13/17 12:00 10/13/17 11:59 09/16/17 18:12 Ondansetron HCl (Zofran) 4 mg Q4HR PRN IVP Nausea & Vomiting 09/15/17 22:30 10/15/17 22:29 Spironolactone (Aldactone) 25 mg DAILY ORAL 09/16/17 13:30 10/16/17 13:29 09/16/17 13:30 SAMANTHA CAT DO Sep 16, 2017 20:02
[2017-09-16] MEDS: Carvedilol 6.25mg Tab ORAL SCH (20:52)
[2017-09-16] MEDS: Atorvastatin 20mg tab ORAL SCH (20:53)
[2017-09-16] MEDS: metroNIDAZOLE 500mg tab ORAL SCH (20:56)
[2017-09-17] VITALS: BP 127/67
[2017-09-17 04:00] VITALS: BP 149/73
[2017-09-17 05:37] LABS: HEMATOCRIT 38.5 % (37.0-47.0); LYMPHOCYTES % (AUTO) 20.8 % (20.0-45.0); MEAN CORPUSCULAR VOLUME 87 FL (80-99); MONOCYTES % (AUTO) 7.8 % (1.0-10.0); NEUTROPHILS % (AUTO) 67.4 % (45.0-75.0); PLATELET COUNT 213 K/UL (150-450); RED BLOOD COUNT 4.43 M/UL (4.20-5.40); RED CELL DISTRIBUTION WIDTH 11.7 % (11.6-14.8)
[2017-09-17 05:55] LABS: ANION GAP 6 mmol/L (5-15); BLOOD UREA NITROGEN 32 mg/dL (7-18); CALCIUM 9.4 MG/DL (8.5-10.1); CARBON DIOXIDE 31 MMOL/L (21-32); CHLORIDE 102 MMOL/L (98-107); CREATININE 0.8 MG/DL (0.55-1.30); POTASSIUM 4.6 MMOL/L (3.5-5.1); SODIUM 139 MMOL/L (136-145)
[2017-09-17] MEDS: metroNIDAZOLE 500mg tab ORAL SCH ×3 (05:55→19:41)
[2017-09-17] MEDS: Nitroglycerin 2% oint pkt TOPIC SCH ×3 (05:55→18:33)
[2017-09-17] MEDS: NovoLOG Insulin Flexpen SUBQ SCH ×4 (05:57→19:48)
[2017-09-17 08:00] VITALS: BP 99/56
[2017-09-17] MEDS: Carvedilol 6.25mg Tab ORAL SCH ×2 (09:00→19:41)
[2017-09-17] MEDS: Lisinopril 20mg tab ORAL SCH ×2 (09:00→19:40)
[2017-09-17] MEDS: Aspirin Baby 81mg ORAL SCH (09:04)
[2017-09-17] MEDS: metFORMIN 500mg tab ORAL SCH ×2 (09:04→18:33)
[2017-09-17] MEDS: Spironolactone 25mg tab ORAL SCH (09:06)
[2017-09-17] MEDS: Heparin 5000 units/ml inj SUBQ SCH ×2 (09:08→19:47)
--- NOTE | 2017-09-17 10:29 | Diagnostic Imaging Report ---
Indication: Cough Technique: One view of the chest Comparison: 09/13/2017 Findings: Interim marked improvement in previously demonstrated pulmonary interstitial edema, now nearly resolved. Left perihilar atelectasis or scarring persists. Left chest pacemaker is again demonstrated. The heart remains borderline enlarged. The pleural spaces are clear Impression: Markedly improved pulmonary interstitial edema, over 4 days Other findings as noted
[2017-09-17] MEDS ORDERED: NS 275ml ONE (11:29)
[2017-09-17] MEDS ORDERED: Tubing IV Secondary IV ONE (11:29)
[2017-09-17 12:00] VITALS: BP 127/80
[2017-09-17] MEDS: cefTRIAXone 1 GM in NS 55 ML IVPB SCH (13:25)
--- NOTE | 2017-09-17 13:45 | Pulmonology Progress Note ---
Assessment/Plan Assessment/Plan 1. Acute respiratory failure. 2. Pulmonary edema. 3. Congestive heart failure with acute on chronic systolic and diastolic heart failure. 4. Pulmonary hypertension seen on echocardiogram. 5. Diabetes. 6. Hypertension. 7. Diarrhea PLAN: Continue diuresis and provide antihypertensive medications. On Flagyl for diarrhea saturating 96% on 2L/min o2 Diabetes care Subjective Interval Events: Feeling better; diarrhea less Constitutional: Reports: no symptoms HEENT: Repors: no symptoms Respiratory: Reports: no symptoms Cardiovascular: Reports: no symptoms Gastrointestinal/Abdominal: Reports: no symptoms Genitourinary: Reports: no symptoms Allergies: Coded Allergies: PHENOBARBITAL (Verified Allergy, Unknown, 09/13/17) Objective Last 24 Hour Vital Signs Date Time Temp Pulse Resp B/P (MAP) Pulse Ox O2 Delivery O2 Flow Rate FiO2 09/17/17 12:07 127/80 09/17/17 12:00 97.7 82 19 127/80 97 Nasal Cannula 3.0 09/17/17 09:00 80 99/56 09/17/17 09:00 99/56 09/17/17 08:00 97.8 80 20 99/56 98 Nasal Cannula 3.0 09/17/17 08:00 86 09/17/17 07:25 80 20 Nasal Cannula 3.0 32 09/17/17 07:25 98 Nasal Cannula 3.0 32 09/17/17 07:25 Nasal Cannula 3.0 32 09/17/17 05:55 149/73 09/17/17 04:00 97.2 79 19 149/73 99 Nasal Cannula 3.0 09/17/17 03:41 86 09/17/17 00:06 75 09/17/17 00:00 97.9 69 20 127/67 98 Nasal Cannula 3.0 09/16/17 20:52 69 127/69 18 20:52 127/67 09/16/17 20:00 97.7 78 19 144/74 98 Nasal Cannula 3.0 09/16/17 19:16 Nasal Cannula 3.0 32 09/16/17 19:16 97 Nasal Cannula 3.0 32 09/16/17 19:16 75 20 Nasal Cannula 3.0 32 09/16/17 18:12 113/59 09/16/17 16:00 97.6 72 20 113/59 97 Nasal Cannula 3.0 09/16/17 16:00 72 Intake and Output 09/16/17 09/17/17 19:00 07:00 Intake Total 475 ml 250 ml Output Total 600 ml 1350 ml Balance -125 ml -1100 ml Intake Oral 420 ml 250 ml IV Total 55 ml Output Urine Total 600 ml 1350 ml # Bowel Movements 1 1 General Appearance: no acute distress HEENT: normocephalic Respiratory/Chest: chest wall non-tender, lungs clear Cardiovascular: normal peripheral pulses Abdomen: normal bowel sounds, soft, non tender Extremities: no cyanosis Laboratory Tests 09/17/17 04:35: White Blood Count 8.0, Red Blood Count 4.43, Hemoglobin 13.0, Hematocrit 38.5, Mean Corpuscular Volume 87, Mean Corpuscular Hemoglobin 29.3, Mean Corpuscular Hemoglobin Concent 33.7, Red Cell Distribution Width 11.7, Platelet Count 213, Mean Platelet Volume 8.8, Neutrophils (%) (Auto) 67.4, Lymphocytes (%) (Auto) 20.8, Monocytes (%) (Auto) 7.8, Eosinophils (%) (Auto) 3.0, Basophils (%) (Auto ) 1.0, Sodium Level 139, Potassium Level 4.6#, Chloride Level 102, Carbon Dioxide Level 31, Anion Gap 6, Blood Urea Nitrogen 32H, Creatinine 0.8, Estimat Glomerular Filtration Rate , Glucose Level 163H, Calcium Level 9.4, Troponin I 0.149H, Pro-B-Type Natriuretic Peptide 851H, Lipase 117 Current Medications Medications (Trade) Dose Ordered Sig/Sin Route PRN Reason Start Time Stop Time Status Last Admin Dose Admin Aspirin (ASA) 81 mg DAILY ORAL 09/16/17 13:30 10/16/17 13:29 09/17/17 09:04 Atorvastatin Calcium (Lipitor) 40 mg BEDTIME ORAL 09/13/17 21:00 10/13/17 20:59 09/16/17 20:53 Carvedilol (Coreg) 6.25 mg EVERY 12 HOURS ORAL 09/16/17 21:00 10/16/17 20:59 09/16/17 20:52 Ceftriaxone Sodium 1 gm/ Sodium Chloride 55 ml @ 110 mls/hr Q24H IVPB 09/15/17 13:00 09/22/17 23:59 09/17/17 13:25 Clopidogrel Bisulfate (Plavix) 75 mg DAILY ORAL 09/14/17 09:00 10/14/17 08:59 09/17/17 09:11 Dextrose (Dextrose 50%) STAT PRN IV Hypoglycemia 09/13/17 17:15 10/13/17 17:14 Furosemide (Lasix) 40 mg EVERY 12 HOURS IV 09/13/17 21:00 10/13/17 13:59 09/17/17 09:05 Heparin Sodium (Porcine) (Heparin 5000 units/ml) 5,000 units EVERY 12 HOURS SUBQ 09/13/17 09:00 10/13/17 08:59 09/17/17 09:08 Hydralazine HCl (Apresoline) 25 mg Q6H PRN ORAL SBP above 150 09/13/17 09:45 10/13/17 09:44 Insulin Aspart (NovoLOG) BEFORE MEALS AND HS SUBQ 09/13/17 21:00 10/13/17 20:59 09/17/17 12:06 Lisinopril (Prinivil) 20 mg Q12HR ORAL 09/13/17 09:00 10/13/17 08:59 09/16/17 20:52 Metformin HCl (Glucophage) 500 mg BID ORAL 09/13/17 18:00 10/13/17 17:59 09/17/17 09:04 Metronidazole (Flagyl) 500 mg Q8HR ORAL 09/16/17 22:00 09/23/17 21:59 09/17/17 13:36 Nitroglycerin (Nitro-Bid) 1 inch TID@0600,1200,1800 TOPIC 09/13/17 12:00 10/13/17 11:59 09/17/17 12:07 Ondansetron HCl (Zofran) 4 mg Q4HR PRN IVP Nausea & Vomiting 09/15/17 22:30 10/15/17 22:29 Spironolactone (Aldactone) 25 mg DAILY ORAL 09/16/17 13:30 10/16/17 13:29 09/17/17 09:06 Reuben Patiño MD Sep 17, 2017 13:45
[2017-09-17 16:00] VITALS: BP 112/58
[2017-09-17] MEDS: Atorvastatin 20mg tab ORAL SCH (19:41)
[2017-09-17 20:00] VITALS: BP 148/70
[2017-09-18] VITALS: BP 105/56
[2017-09-18 04:00] VITALS: BP 100/56
[2017-09-18] MEDS: Nitroglycerin 2% oint pkt TOPIC SCH ×3 (06:00→17:57)
[2017-09-18] MEDS: metroNIDAZOLE 500mg tab ORAL SCH (06:19)
[2017-09-18] MEDS: NovoLOG Insulin Flexpen SUBQ SCH ×4 (06:58→21:09)
[2017-09-18 08:00] VITALS: BP 116/63
[2017-09-18] MEDS: Aspirin Baby 81mg ORAL SCH (08:18)
[2017-09-18] MEDS: Spironolactone 25mg tab ORAL SCH (08:18)
[2017-09-18] MEDS: Carvedilol 6.25mg Tab ORAL SCH ×2 (08:19→21:08)
[2017-09-18] MEDS: Lisinopril 20mg tab ORAL SCH ×2 (08:19→21:08)
[2017-09-18] MEDS: metFORMIN 500mg tab ORAL SCH ×2 (08:19→17:57)
[2017-09-18] MEDS: Heparin 5000 units/ml inj SUBQ SCH ×2 (08:27→21:10)
--- NOTE | 2017-09-18 11:43 | Pulmonology Progress Note ---
Assessment/Plan Assessment/Plan 1. Acute respiratory failure. 2. Pulmonary edema. 3. Congestive heart failure with acute on chronic systolic and diastolic heart failure. 4. Pulmonary hypertension seen on echocardiogram. 5. Diabetes. 6. Hypertension. 7. Diarrhea oral diuresis dc Flagyl, c diff neg PO abx for UTI OT/PT snf tomorrow pending PT recs called son, left msg Subjective Constitutional: Reports: fatigue, Denies: fever, chills Respiratory: Denies: productive cough, shortness of breath Allergies: Coded Allergies: PHENOBARBITAL (Verified Allergy, Unknown, 09/13/17) Objective Last 24 Hour Vital Signs Date Time Temp Pulse Resp B/P (MAP) Pulse Ox O2 Delivery O2 Flow Rate FiO2 09/18/17 08:19 84 116/63 09/18/17 08:19 116/63 09/18/17 08:00 Nasal Cannula 3.0 32 09/18/17 08:00 83 18 Nasal Cannula 3.0 32 09/18/17 08:00 97 Nasal Cannula 3.0 32 09/18/17 08:00 97.6 71 20 116/63 97 Nasal Cannula 2.0 09/18/17 07:45 72 09/18/17 06:00 100/56 09/18/17 04:00 98.3 63 20 100/56 99 Nasal Cannula 3.0 09/18/17 04:00 83 09/18/17 04:00 72 09/18/17 00:00 83 09/18/17 00:00 97.6 82 22 105/56 98 Nasal Cannula 3.0 09/17/17 20:00 73 09/17/17 20:00 98.1 80 20 148/70 98 Nasal Cannula 3.0 09/17/17 19:41 69 112/58 09/17/17 19:40 112/58 09/17/17 19:00 97 Nasal Cannula 3.0 32 09/17/17 19:00 Nasal Cannula 3.0 32 09/17/17 19:00 85 18 Nasal Cannula 3.0 32 09/17/17 18:33 112/58 09/17/17 16:00 97.7 70 20 112/58 97 Nasal Cannula 3.0 09/17/17 16:00 69 09/17/17 12:07 127/80 09/17/17 12:00 97.7 82 19 127/80 97 Nasal Cannula 3.0 09/17/17 12:00 79 Intake and Output 09/17/17 09/18/17 19:00 07:00 Intake Total 535 ml 240 ml Output Total 900 ml 800 ml Balance -365 ml -560 ml Intake Oral 480 ml 240 ml IV Total 55 ml Output Urine Total 900 ml 800 ml General Appearance: no acute distress HEENT: atraumatic Respiratory/Chest: lungs clear Cardiovascular: normal rate Abdomen: soft, non tender Microbiology Date/Time Source Procedure Growth Status 09/17/17 23:10 Stool Clostridium difficile Toxin Assay - Final Complete Current Medications Medications (Trade) Dose Ordered Sig/Sin Route PRN Reason Start Time Stop Time Status Last Admin Dose Admin Aspirin (ASA) 81 mg DAILY ORAL 09/16/17 13:30 10/16/17 13:29 09/18/17 08:18 Atorvastatin Calcium (Lipitor) 40 mg BEDTIME ORAL 09/13/17 21:00 10/13/17 20:59 09/17/17 19:41 Carvedilol (Coreg) 6.25 mg EVERY 12 HOURS ORAL 09/16/17 21:00 10/16/17 20:59 09/18/17 08:19 Ceftriaxone Sodium 1 gm/ Sodium Chloride 55 ml @ 110 mls/hr Q24H IVPB 09/15/17 13:00 09/22/17 23:59 09/17/17 13:25 Clopidogrel Bisulfate (Plavix) 75 mg DAILY ORAL 09/14/17 09:00 10/14/17 08:59 09/18/17 08:18 Dextrose (Dextrose 50%) STAT PRN IV Hypoglycemia 09/13/17 17:15 10/13/17 17:14 Furosemide (Lasix) 40 mg EVERY 12 HOURS IV 09/13/17 21:00 10/13/17 13:59 09/18/17 08:20 Heparin Sodium (Porcine) (Heparin 5000 units/ml) 5,000 units EVERY 12 HOURS SUBQ 09/13/17 09:00 10/13/17 08:59 09/18/17 08:27 Hydralazine HCl (Apresoline) 25 mg Q6H PRN ORAL SBP above 150 09/13/17 09:45 10/13/17 09:44 Insulin Aspart (NovoLOG) BEFORE MEALS AND HS SUBQ 09/13/17 21:00 10/13/17 20:59 09/18/17 06:58 Lisinopril (Prinivil) 20 mg Q12HR ORAL 09/13/17 09:00 10/13/17 08:59 09/18/17 08:19 Metformin HCl (Glucophage) 500 mg BID ORAL 09/13/17 18:00 10/13/17 17:59 09/18/17 08:19 Metronidazole (Flagyl) 500 mg Q8HR ORAL 09/16/17 22:00 09/23/17 21:59 09/18/17 06:19 Nitroglycerin (Nitro-Bid) 1 inch TID@0600,1200,1800 TOPIC 09/13/17 12:00 10/13/17 11:59 09/17/17 18:33 Ondansetron HCl (Zofran) 4 mg Q4HR PRN IVP Nausea & Vomiting 09/15/17 22:30 10/15/17 22:29 Spironolactone (Aldactone) 25 mg DAILY ORAL 09/16/17 13:30 10/16/17 13:29 09/18/17 08:18 GERARDO LR Sep 18, 2017 11:43
[2017-09-18 12:00] VITALS: BP 121/56
[2017-09-18 16:00] VITALS: BP 126/65
[2017-09-18 20:00] VITALS: BP 151/87
[2017-09-18] MEDS: Atorvastatin 20mg tab ORAL SCH (21:08)
[2017-09-18] MEDS: Furosemide 40mg tab ORAL SCH (21:08)
--- NOTE | 2017-09-18 23:03 | Cardiology Progress Note ---
Assessment/Plan Assessment/Plan 1. Acute diastolic and systolic CHF, continue lasix, aldactone, increase carvedilol. 2. NSTEMI vs trop leak due to myocarditis, ASA and plavix, high intensity statins. 3. Dual chamber pacemkaer, functioning well, V-paced. Subjective Subjective Sinus rhythm at 70, V-paced. Objective Last 24 Hour Vital Signs Date Time Temp Pulse Resp B/P (MAP) Pulse Ox O2 Delivery O2 Flow Rate FiO2 09/18/17 21:08 70 151/87 09/18/17 21:08 151/87 09/18/17 20:00 69 09/18/17 20:00 97.7 70 24 151/87 96 Room Air 97.7 09/18/17 17:57 126/65 09/18/17 16:00 80 09/18/17 16:00 97.5 94 21 126/65 95 Room Air 09/18/17 12:03 71 09/18/17 12:00 97.1 71 20 121/56 97 Nasal Cannula 2.0 09/18/17 11:48 116/63 09/18/17 08:19 84 116/63 09/18/17 08:19 116/63 09/18/17 08:00 Nasal Cannula 3.0 32 09/18/17 08:00 83 18 Nasal Cannula 3.0 32 09/18/17 08:00 97 Nasal Cannula 3.0 32 09/18/17 08:00 97.6 71 20 116/63 97 Nasal Cannula 2.0 09/18/17 07:45 72 09/18/17 06:00 100/56 09/18/17 04:00 98.3 63 20 100/56 99 Nasal Cannula 3.0 09/18/17 04:00 83 09/18/17 04:00 72 09/18/17 00:00 83 09/18/17 00:00 97.6 82 22 105/56 98 Nasal Cannula 3.0 Intake and Output 09/17/17 09/18/17 19:00 07:00 Intake Total 535 ml 240 ml Output Total 900 ml 800 ml Balance -365 ml -560 ml Intake Oral 480 ml 240 ml IV Total 55 ml Output Urine Total 900 ml 800 ml 2D Echo: EF 35%, Global LV HK, Mod MR, RVSP 40 mmHg, Grdae II LVDD Microbiology Date/Time Source Procedure Growth Status 2/19/18 23:10 Stool Clostridium difficile Toxin Assay - Final Complete Objective HEENT: Conjunctivae pink. Oropharynx clear. NECK: Supple. Jugular venous pressure to the level of the jaw. LUNGS: Bilateral rales. CARDIAC: Regular rhythm and rate. Normal S1, S2. + S3, A 2/6 systolic murmur at apex. ABDOMEN: Soft, NT, ND, + BS, no HSM. EXTREMITIES: 1+ B/L dependent edema. FRANCOIS ZAMORA Sep 18, 2017 23:03
[2017-09-19] VITALS (7 sets, daily range): BP systolic 111–134; BP diastolic 60–78
[2017-09-19] MEDS: Nitroglycerin 2% oint pkt TOPIC SCH ×3 (05:34→18:00)
[2017-09-19] MEDS: NovoLOG Insulin Flexpen SUBQ SCH ×4 (05:37→21:00)
[2017-09-19] MEDS: Aspirin Baby 81mg ORAL SCH (09:19)
[2017-09-19] MEDS: Lisinopril 20mg tab ORAL SCH ×2 (09:20→21:00)
[2017-09-19] MEDS: Spironolactone 25mg tab ORAL SCH (09:20)
[2017-09-19] MEDS: Carvedilol 6.25mg Tab ORAL SCH ×2 (09:20→21:00)
[2017-09-19] MEDS: Heparin 5000 units/ml inj SUBQ SCH ×2 (09:21→21:00)
[2017-09-19] MEDS: Furosemide 40mg tab ORAL SCH ×2 (09:25→21:00)
[2017-09-19] MEDS: metFORMIN 500mg tab ORAL SCH ×2 (09:25→18:46)
--- NOTE | 2017-09-19 19:19 | Cardiology Progress Note ---
Assessment/Plan Assessment/Plan 1. Acute diastolic and systolic CHF, continue lasix, aldactone, increase carvedilol. 2. NSTEMI vs trop leak due to myocarditis, ASA and plavix, high intensity statins. 3. Dual chamber pacemkaer, functioning well, V-paced. Subjective Subjective Sinus rhythm at 70, V-paced. Objective Last 24 Hour Vital Signs Date Time Temp Pulse Resp B/P (MAP) Pulse Ox O2 Delivery O2 Flow Rate FiO2 09/19/17 18:00 102/61 09/19/17 16:10 97.5 66 20 130/72 99 Room Air 97.5 09/19/17 16:04 62 09/19/17 12:00 90/58 09/19/17 11:36 63 09/19/17 11:36 97.8 63 18 115/60 98 Room Air 97.8 09/19/17 09:20 88 117/65 09/19/17 09:20 117/65 09/19/17 08:08 Nasal Cannula 3.0 32 09/19/17 08:08 97 Nasal Cannula 3.0 32 09/19/17 08:07 88 18 Nasal Cannula 3.0 32 09/19/17 08:00 76 09/19/17 08:00 98.2 68 20 117/65 98 Room Air 98.2 09/19/17 05:34 111/60 09/19/17 04:00 98.2 69 20 111/60 98 Room Air 98.2 09/19/17 04:00 76 09/19/17 00:00 66 09/19/17 00:00 98.3 70 20 134/75 98 Room Air 98.3 09/18/17 21:08 70 151/87 09/18/17 21:08 151/87 09/18/17 20:00 69 09/18/17 20:00 97.7 70 24 151/87 96 Room Air 97.7 Intake and Output 09/18/17 09/19/17 19:00 07:00 Intake Total 390 ml 50 ml Output Total 75 ml Balance 390 ml -25 ml Intake Oral 390 ml 50 ml Output Urine Total 75 ml # Bowel Movements 3 2 Microbiology Date/Time Source Procedure Growth Status 09/17/17 23:10 Stool Clostridium difficile Toxin Assay - Final Complete Objective HEENT: Conjunctivae pink. Oropharynx clear. NECK: Supple. Jugular venous pressure to the level of the jaw. LUNGS: Bilateral rales. CARDIAC: Regular rhythm and rate. Normal S1, S2. + S3, A 2/6 systolic murmur at apex. ABDOMEN: Soft, NT, ND, + BS, no HSM. EXTREMITIES: 1+ B/L dependent edema. FRANCOIS ZAMORA Sep 19, 2017 19:19
[2017-09-19] MEDS: Atorvastatin 20mg tab ORAL SCH (21:00)
[2017-09-19] MEDS ORDERED: 1/2 NS 1000ml IV ONE (21:24)
--- NOTE | 2017-09-21 13:09 | Discharge Summary ---
Discharge Summary Hospital Course Date of Admission Sep 13, 2017 at 04:04 Date of Discharge Sep 19, 2017 at 21:25 Admitting Diagnosis CONGESTIVE HEART FAILURE RIRI Mckay is a 87 year old female who was admitted on Sep 13, 2017 at 04: 04 for Congestive Heart Failure Hospital Course [id number] Discharge Discharge Disposition Patient was discharged to SNF/Subacute Facility(03) Discharge Diagnoses: Emelia Greenfield NP Sep 21, 2017 13:09
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
--- NOTE | 2017-10-08 09:52 | Cardiology Report ---
APPROVED REPORT EXAM: Two-dimensional and M-mode echocardiogram with Doppler and color Doppler. INDICATION Chest Pain M-Mode DIMENSIONS IVSd1.1 (0.7-1.1cm)Left Atrium (MM)4.6 (1.6-4.0cm) LVDd3.9 (3.5-5.6cm)Aortic Root2.4 (2.0-3.7cm) PWd1.2 (0.7-1.1cm)Aortic Cusp Exc.1.5 (1.5-2.0cm) LVDs2.6 (2.5-4.0cm) PWs1.4 cm Technically difficult study due to poor acoustical windows. Normal left ventricular chamber size. Global left ventricular hypokinesis. Basal and mid anterior septal dyskinesis and apical akinesis. Left ventricular ejection fraction estimated to be 30-35%. No evidence of left ventricular hypertrophy. No evidence of pericardial or pleural effusion. Right cardiac chamber sizes are within normal limits. Mild left atrial enlargement by 2D. Focal aortic valve sclerosis with adequate cusp excursion. Thickened mitral valve leaflets with normal excursion. Mild mitral annulus and aortic root calcification. Pulmonic valve is well visualized. Normal tricuspid valve structure. IVC is normal in size and collapsible with respiration. Probable pacemaker wire present in the right side chambers. A color flow and spectral Doppler study was performed and revealed: No aortic regurgitation. Moderate mitral regurgitation. Mitral inflow velocities indicates possible pseudo normalization pattern implying significant left ventricular diastolic dysfunction. Mild tricuspid regurgitation. Tricuspid systolic velocities suggests peak right ventricular systolic pressure of 40mmHg Consistent with mild pulmonary hypertension. Pulmonic regurgitation present.
== END 2017-09-19 21:25 | DRG 280 ==
LOC: EDBD 02:21 → EDBEDREQTM 03:30 → EDBEDREQ 03:30 → EDBEDREQSVC 03:30 → EMR 03:59 → 2W 04:04 → EDBEDREQ 04:24 → 2W 09-16 13:43
DX: I11.0 Hypertensive heart disease with heart failure (principal); J96.00 Acute respiratory failure, unspecified whether with hypoxia or hypercapnia; I21.4 Non-ST elevation (NSTEMI) myocardial infarction; N39.0 Urinary tract infection, site not specified; I27.20 Pulmonary hypertension, unspecified; E11.9 Type 2 diabetes mellitus without complications; B96.20 Unspecified Escherichia coli [E. coli] as the cause of diseases classified elsewhere; I50.43 Acute on chronic combined systolic (congestive) and diastolic (congestive) heart failure; R79.89 Other specified abnormal findings of blood chemistry; I51.4 Myocarditis, unspecified; I25.10 Atherosclerotic heart disease of native coronary artery without angina pectoris; Z95.0 Presence of cardiac pacemaker; I34.0 Nonrheumatic mitral (valve) insufficiency; E78.5 Hyperlipidemia, unspecified; R19.7 Diarrhea, unspecified
CPT/HCPCS: 36415; 51702; 71045; 80048; 80053; 80061; 81003; 82550; 82553; 82962; 83036; 83690; 83735; 83880; 84484; 85025; 85610; 85730; 87086; 87181; 87324; 93005; 93306; 94640; 94660; 94664; 94760; J1815; J2405; J8499